=== PATIENT | female | born 1950 | race Asian ===

== ENCOUNTER 2020-04-20 12:30 | Emergency (ER) | payer MEDICARE ==
[~2020-04-20] VITALS: Ht 154.9 cm; Wt 62.6 kg
[~2020-04-20 12:30] MED LIST: ASPIRIN81 MG PO; CIPRO500 MG PO; FLAGYL500 MG PO; LISINOPRIL10 MG PO; NORCO 5-325 TA1 EACH PO; PROMETHAZINE HC25 M1 PO; SENNA S TABLET1 EACH PO; SIMVASTATIN40 MG PO; [UNRECOGNIZED DRUG - OTHER] TOP
[2020-04-20] MEDS ORDERED: LIPITOR20 MG PO (13:17)
[2020-04-20] MEDS ORDERED: CLONIDINE HCL0.2 MG (13:18)
[2020-04-20] MEDS ORDERED: HYDROXYZINE HCL25 MG PO (13:18)
[2020-04-20] MEDS ORDERED: DIOVAN80 MG PO (13:19)
[2020-04-20] MEDS ORDERED: CARVEDILOL3.125 MG PO (13:20)
[2020-04-20] MEDS ORDERED: AMLODIPINE BESYL5 MG PO (13:21)
[2020-04-20 15:10] VITALS: BP 90/60
== END 2020-04-20 14:50 | disposition home or self-care (01) ==
LOC: ER 13:40
DX: I10 Essential (primary) hypertension (principal); E11.9 Type 2 diabetes mellitus without complications
CPT/HCPCS: 99282